=== PATIENT | male | born 1985 | race Two or more races ===

== ENCOUNTER 2023-02-25 23:32 | Outpatient (CLI) | payer OTHER | END 2023-02-25 23:59 | disposition short-term general hospital (02) | LOC: EMS 23:32 | DX: S06.9X9A Unspecified intracranial injury with loss of consciousness of unspecified duration, initial encounter (principal); R06.89 Other abnormalities of breathing; V43.51XA Car driver injured in collision with sport utility vehicle in traffic accident, initial encounter; Y92.413 State road as the place of occurrence of the external cause | CPT/HCPCS: A0425; A0427 ==